=== PATIENT | female | born 1995 | race Caucasian/White ===

== ENCOUNTER 2018-08-27 22:27 | Emergency (ER) | payer BC | END 2018-08-27 23:20 | disposition home or self-care (01) | LOC: COL.ER 22:27 | DX: T78.40XA Allergy, unspecified, initial encounter (principal) ==

== ENCOUNTER 2020-06-22 13:37 | Emergency (ER) | payer BC ==
[~2020-06-22] VITALS: Ht 157.5 cm; Wt 76.4 kg
[~2020-06-22 13:37] MED LIST: AMOXICILLIN/CLA1 TA1 PO; BENADRYL25 M2 PO; EXCEDRIN TENSIO1 CAP PO; MOTRIN 200200 MG/TAB PO; TYLENOL 500MG500 MG PO
[2020-06-22 13:45] VITALS: TEMP 98.2
[2020-06-22 15:25] VITALS: BP 117/74; PULSE 84
== END 2020-06-22 15:25 | disposition home or self-care (01) ==
LOC: COL.ER 13:37
DX: B34.9 Viral infection, unspecified (principal); Z20.828 Contact with and (suspected) exposure to other viral communicable diseases

== ENCOUNTER → 2020-06-30 | Emergency (ER) | payer BC | LOC: COL.ER 15:55 | DX: Z00.00 Encounter for general adult medical examination without abnormal findings (principal) ==